=== PATIENT | male | born 1975 | race Caucasian/White ===

== ENCOUNTER 2019-06-02 20:04 | Emergency (ER) | payer MEDICAID, SELFPAY ==
[2019-03-14 08:36] VITALS: BMI 30.4
[2019-06-02 20:05] VITALS: BP 127/84; PULSE 84; RESP 17; TEMP 37.5; O2SAT 94; BMI 30.6
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
--- NOTE | 2019-06-02 21:00 | RAD_ITS ---
STUDY: X-RAY - LEFT HAND, ATTENTION THIRD FINGER REASON FOR EXAM: Male, 44 years old. Laceration to 3rd digit on left hand TECHNIQUE: 3 view(s) of the finger were obtained. COMPARISON: None. FINDINGS: Normal metacarpal head. Normal metacarpophalangeal joint. Normal proximal phalanx. Normal middle phalanx. Normal distal phalanx. Normal proximal interphalangeal joint. Normal distal interphalangeal joint. There is soft tissue avulsion along the distal end of the finger. RAD/Finger(s) Min 2 Views IMPRESSION: Soft tissue avulsion of the finger tip. Electronically Signed: Marty Lombardo DO at 21:33 EST Tel [phone], Service support ,
--- NOTE | 2019-06-02 21:28 | ED.RN ---
PT SOAKING INJURED FINGER IN A BETADINE AND SALINE SOLUTION.
[2019-06-02] MEDS: Diphth,Pertuss(Acell),Tet Vac 0.5 ML Vial IM (22:05)
[2019-06-02 22:18] VITALS: RESP 16
--- NOTE | 2019-06-02 22:19 | ED.RN ---
PT'S FINGER WAS DRESSED WITH XEROFORM, THEN CLING, THEN TUBE GAUZE. PT INSTRUCTED ON DRESSING CHANGES
== END 2019-06-02 22:20 | disposition home or self-care (01) ==
PROVIDERS: Emergency Provider Emergency Medicine; Family Provider Internal Medicine; PCP Internal Medicine
DX: S61.203A Unspecified open wound of left middle finger without damage to nail, initial encounter (principal); W27.8XXA Contact with other nonpowered hand tool, initial encounter; Y93.9 Activity, unspecified; Y92.9 Unspecified place or not applicable; Y99.9 Unspecified external cause status; Z23 Encounter for immunization; F17.200 Nicotine dependence, unspecified, uncomplicated
CPT/HCPCS: 73140; 90715; 99282